=== PATIENT | female | born 1980 | race Two or more races ===

== ENCOUNTER → 2018-07-23 10:56 | Outpatient (CLI) | payer OTHER | END | disposition home or self-care (01) | LOC: LAB 10:56 | DX: N92.5 Other specified irregular menstruation (principal); N93.8 Other specified abnormal uterine and vaginal bleeding; M19.90 Unspecified osteoarthritis, unspecified site; M48.47XA Fatigue fracture of vertebra, lumbosacral region, initial encounter for fracture ==